=== PATIENT | female | born 1955 | race African-American/Black ===

== ENCOUNTER 2019-07-12 20:36 | Emergency (ER) | payer OTHER ==
[~2019-07-12] VITALS: Ht 160 cm; Wt 72.6 kg
[2019-07-12 20:50] VITALS: BP 121/73; Ht 160 cm; Wt 72.6 kg
== END 2019-07-12 23:11 | disposition home or self-care (01) ==
LOC: ED 20:36
DX: L25.9 Unspecified contact dermatitis, unspecified cause (principal)